=== PATIENT | female | born 1945 | race Caucasian/White ===

== ENCOUNTER 2021-01-25 11:48 | Inpatient (IN) | payer MEDICARE ==
[~2021-01-25] VITALS: Ht 165.1 cm; Wt 49.5 kg
[~2021-01-25 11:48] MED LIST: APIX5TAB3 PO; DIGO125T2 PO; DILT180C66 PO
[2021-01-25 20:15] LABS: BASOPHILS # (AUTO) 0.1 X10'3 (0-0.2); BASOPHILS % (AUTO) 0.3 % (0-1); EOSINOPHILS % (AUTO) 0 % (0-6); HEMATOCRIT 26.2 % (35.0-45.0); HEMOGLOBIN 8.5 g/dl (12.0-16.0); LYMPHOCYTES # (AUTO) 0.2 X10'3 (1.1-4.8); MEAN CORPUSCULAR HEMOGLOBIN 39.5 PG (27.0-31.0); MEAN CORPUSCULAR HGB CONC 32.6 g/dL (33.0-36.5); MEAN CORPUSCULAR VOLUME 121.2 FL (78-98); MEAN PLATELET VOLUME 8.4 FL (7.4-10.4); MONOCYTES # (AUTO) 0.7 X10'3 (0-0.9); NEUTROPHILS # (AUTO) 16.8 X10'3 (1.8-7.7); NEUTROPHILS % (AUTO) 94.7 % (42-75); PLATELET COUNT 330 X10'3 (140-440); RED BLOOD COUNT 2.16 X10'6 (4.20-5.60); WHITE BLOOD COUNT 17.8 X10'3 (4.5-11.0)
[2021-01-25 20:25] LABS: ALANINE AMINOTRANSFERASE 7 U/L (12-78); ALBUMIN 2.5 G/DL (3.4-5.0); ALBUMIN/GLOBULIN RATIO 0.7 (1.1-1.5); ALKALINE PHOSPHATASE 92 IU/L (46-116); ANION GAP 16 (8-16); ASPARTATE AMINO TRANSFERASE 20 U/L (10-37); BILIRUBIN,TOTAL 0.4 MG/DL (0.1-1.0); BLOOD UREA NITROGEN 66 MG/DL (7-18); BUN/CREATININE RATIO 10.9 (6.6-38.0); CALCIUM 7.1 MG/DL (8.5-10.1); CHLORIDE 105 MMOL/L (99-107); CREATININE 6.05 MG/DL (0.40-0.90); GLUCOSE 104 MG/DL (70-104); POTASSIUM 4.6 MMOL/L (3.5-5.1); SODIUM 138 MMOL/L (135-145); TOTAL CARBON DIOXIDE 17.5 MMOL/L (24-32); eGFR 7 ML/MIN
[2021-01-25] MEDS ORDERED: temazepam 15mg capsule PO PRN (21:00)
--- NOTE | 2021-01-25 22:06 | NUR ---
MOVED FROM HALLWAY 13 INTO BED 13.
--- NOTE | 2021-01-25 22:36 | NUR ---
DAUGHTER WARREN LEFT FOR THE NIGHT. PTS MED REC COMPLETED. PT IS A&OX4 AND POLITE AND COOPERATIVE. PIV IN PLACE. AWAITING HOSPITALIST.
[2021-01-26] MEDS ORDERED: normal saline 1000ml 1,000 ML IV SCH
[2021-01-26] MEDS ORDERED: HYDROcodone/acetaminophen 5mg/325mg tablet PO PRN
[2021-01-26] MEDS ORDERED: magnesium hydroxide 30ml (MOM) UD suspension PO PRN
[2021-01-26] MEDS ORDERED: potassium Cl 20 mEq SR tablet PO PRN ×2
[2021-01-26] MEDS ORDERED: mag hydrox/Alum hydrox/simeth 30ml oral suspension PO PRN
[2021-01-26] MEDS ORDERED: potassium Cl 40MEQ/1/2NS 520ml 520 ML IV PRN ×2
[2021-01-26] MEDS ORDERED: morphine 2 MG/ML inj. syringe IV PRN ×2
[2021-01-26] MEDS ORDERED: magnesium 2GM in 50ml NS 50 ML IV PRN
[2021-01-26] MEDS ORDERED: acetaminophen 325mg tablet PO PRN
[2021-01-26] MEDS ORDERED: magnesium Cl slow-release 64mg tablet PO PRN
[2021-01-26] MEDS ORDERED: HYDROcodone/acetaminophen 10/325mg tab PO PRN
[2021-01-26] MEDS ORDERED: magnesium 4gm in 100ml NS 100 ML IV PRN
[2021-01-26] MEDS ORDERED: ondansetron/PF 4mg/2ml inj IV PRN
[2021-01-26] MEDS: CefTRIAXone 2gm/D5W 50ml BAG 50 ML IV SCH (01:20)
[2021-01-26 01:31] LABS: CLARITY,URINE TURBID (Clear); COLOR,URINE BROWN (Yellow)
[2021-01-26 01:33] LABS: UA COLLECTION TYPE FOLEY CATH
[2021-01-26 01:39] LABS: RBC,URINE TNTC /HPF (0-2)
[2021-01-26 01:40] LABS: BACTERIA,URINE NONE SEEN /HPF (Neg); SQUAMOUS EPITHELIAL CELL,UR NONE SEEN /LPF (FEW)
[2021-01-26 03:37] LABS: BASOPHILS # (AUTO) 0.1 X10'3 (0-0.2); BASOPHILS % (AUTO) 1.1 % (0-1); EOSINOPHILS % (AUTO) 0 % (0-6); HEMATOCRIT 22.7 % (35.0-45.0); HEMOGLOBIN 7.1 g/dl (12.0-16.0); LYMPHOCYTES # (AUTO) 0.1 X10'3 (1.1-4.8); MEAN CORPUSCULAR HEMOGLOBIN 38.6 PG (27.0-31.0); MEAN CORPUSCULAR HGB CONC 31.1 g/dL (33.0-36.5); MEAN PLATELET VOLUME 7.9 FL (7.4-10.4); MONOCYTES # (AUTO) 0.5 X10'3 (0-0.9); MONOCYTES % (AUTO) 4.2 % (2-12); NEUTROPHILS % (AUTO) 93.7 % (42-75); PLATELET COUNT 249 X10'3 (140-440); RED BLOOD COUNT 1.83 X10'6 (4.20-5.60); RED CELL DISTRIBUTION WIDTH 15.5 % (11.5-14.5); WHITE BLOOD COUNT 12.8 X10'3 (4.5-11.0)
[2021-01-26 04:04] LABS: ALBUMIN 1.6 G/DL (3.4-5.0); ALBUMIN/GLOBULIN RATIO 0.6 (1.1-1.5); ALKALINE PHOSPHATASE 57 IU/L (46-116); ANION GAP 16 (8-16); ASPARTATE AMINO TRANSFERASE 13 U/L (10-37); BILIRUBIN,TOTAL 0.2 MG/DL (0.1-1.0); BLOOD UREA NITROGEN 52 MG/DL (7-18); CHLORIDE 115 MMOL/L (99-107); CREATININE 4.34 MG/DL (0.40-0.90); GLUCOSE 81 MG/DL (70-104); MAGNESIUM 1.3 MG/DL (1.5-2.4); POTASSIUM 3.4 MMOL/L (3.5-5.1); SODIUM 146 MMOL/L (135-145); TOTAL CARBON DIOXIDE 15.1 MMOL/L (24-32); TOTAL PROTEIN 4.1 G/DL (6.4-8.2); eGFR 10 ML/MIN
[2021-01-26 04:10] LABS: CALCIUM 5.1 MG/DL (8.5-10.1)
[2021-01-26 04:11] LABS: ALANINE AMINOTRANSFERASE < 6 U/L (12-78)
[2021-01-26] MEDS ORDERED: heparin, porcine 5000 units/ml vial SQ SCH (08:00)
[2021-01-26] MEDS ORDERED: digoxin 125mcg (0.125mg) tablet PO SCH (08:00)
[2021-01-26] MEDS: K and/or MAG REPLACEMENT MC SCH ×2 (08:00→19:25)
[2021-01-26] MEDS: diltiazem CD 180mg cap (once-daily) PO SCH (08:10)
[2021-01-26 08:30] VITALS: BP 97/40
--- NOTE | 2021-01-26 09:16 | NUR ---
PAGER ID: [phone] MESSAGE: Elicia received to 4023A from ED, reported NPO, reg diet ordered??? Dr Higuera to consult? Nephrology? Thank you, ZAKIYA [id number]
[2021-01-26] MEDS ORDERED: furosemide 40mg/4ml inj IV ONE (10:55)
[2021-01-26] MEDS: sodium bicarbonate (8.4%) inj. 100 MEQ in dextrose 5%-water 1,000 ML IV SCH ×2 (10:56→21:14)
[2021-01-26] MEDS: apixaban 5mg tablet PO SCH (12:14)
[2021-01-26] MEDS ORDERED: DILT-36 PO (14:40)
[2021-01-26 18:00] VITALS: BP 89/39
--- NOTE | 2021-01-26 18:40 | NUR ---
Patient in room ORTHO 4023. I have received report from Breana PANIAGUA and had the opportunity to ask questions and assume patient care.
--- NOTE | 2021-01-26 19:03 | NUR ---
Report to Barbie PANIAGUA
[2021-01-26] MEDS: lactobacillus rhamnosus 10,000 MMU CELLS/CAPSULE PO SCH (21:14)
[2021-01-26 22:00] VITALS: BP 98/40
--- NOTE | 2021-01-27 00:33 | NUR ---
PAGER ID: [phone] MESSAGE: Barbie [phone]- Pt in [id number] [facility], she has positive blood cultures in her aerobic bottle; gram positive cocci in clusters. She in only on Rocephin. Addendum: 01/27/21 at 0035 by Barbie Weir RN called back, ordered 1gm Vanco now then pharmacy to dose. Will place orders.
[2021-01-27] MEDS ORDERED: vancomycin/NS 1 GM ADD-VANTAGE 250 ML IV ONE (00:43)
[2021-01-27] MEDS: CefTRIAXone 2gm/D5W 50ml BAG 50 ML IV SCH (00:50)
[2021-01-27 05:55] LABS: BASOPHILS % (AUTO) 0.1 % (0-1); EOSINOPHILS % (AUTO) 0.1 % (0-6); HEMATOCRIT 26.8 % (35.0-45.0); HEMOGLOBIN 8.6 g/dl (12.0-16.0); LYMPHOCYTES # (AUTO) 0.2 X10'3 (1.1-4.8); LYMPHOCYTES % (AUTO) 0.8 % (21-51); MEAN CORPUSCULAR HEMOGLOBIN 38.9 PG (27.0-31.0); MEAN CORPUSCULAR HGB CONC 32.2 g/dL (33.0-36.5); MEAN CORPUSCULAR VOLUME 120.6 FL (78-98); MEAN PLATELET VOLUME 8.3 FL (7.4-10.4); MONOCYTES # (AUTO) 0.7 X10'3 (0-0.9); MONOCYTES % (AUTO) 3.3 % (2-12); NEUTROPHILS # (AUTO) 19.9 X10'3 (1.8-7.7); NEUTROPHILS % (AUTO) 95.7 % (42-75); PLATELET COUNT 316 X10'3 (140-440); RED BLOOD COUNT 2.22 X10'6 (4.20-5.60); RED CELL DISTRIBUTION WIDTH 15.1 % (11.5-14.5); WHITE BLOOD COUNT 20.7 X10'3 (4.5-11.0)
[2021-01-27 06:00] VITALS: BP 89/39
[2021-01-27 06:10] LABS: ALBUMIN 2.1 G/DL (3.4-5.0); ALBUMIN/GLOBULIN RATIO 0.7 (1.1-1.5); ALKALINE PHOSPHATASE 92 IU/L (46-116); ANION GAP 14 (8-16); ASPARTATE AMINO TRANSFERASE 16 U/L (10-37); BILIRUBIN,TOTAL 0.3 MG/DL (0.1-1.0); BLOOD UREA NITROGEN 63 MG/DL (7-18); BUN/CREATININE RATIO 12.1 (6.6-38.0); CALCIUM 6.5 MG/DL (8.5-10.1); CHLORIDE 104 MMOL/L (99-107); CREATININE 5.19 MG/DL (0.40-0.90); GLUCOSE 152 MG/DL (70-104); MAGNESIUM 1.5 MG/DL (1.5-2.4); POTASSIUM 3.8 MMOL/L (3.5-5.1); SODIUM 139 MMOL/L (135-145); TOTAL CARBON DIOXIDE 20.9 MMOL/L (24-32); TOTAL PROTEIN 5.3 G/DL (6.4-8.2); eGFR 8 ML/MIN
--- NOTE | 2021-01-27 06:17 | NUR ---
Problems reprioritized. Patient report given, questions answered & plan of care reviewed with Josselin PANIAGUA.
[2021-01-27 06:31] LABS: ALANINE AMINOTRANSFERASE < 6 U/L (12-78)
[2021-01-27] MEDS ORDERED: vancomycin/NS 1 GM ADD-VANTAGE 250 ML X 1 DOSE IV PRN (07:05)
[2021-01-27] MEDS: lactobacillus rhamnosus 10,000 MMU CELLS/CAPSULE PO SCH ×2 (07:25→21:00)
[2021-01-27] MEDS: diltiazem CD 180mg cap (once-daily) PO SCH (07:26)
[2021-01-27] MEDS: K and/or MAG REPLACEMENT MC SCH ×2 (07:27→20:00)
[2021-01-27] MEDS: sodium bicarbonate (8.4%) inj. 100 MEQ in dextrose 5%-water 1,000 ML IV SCH ×2 (07:39→21:10)
[2021-01-27 08:00] VITALS: BP 104/45
[2021-01-27 10:00] VITALS: BP 92/46
--- NOTE | 2021-01-27 11:06 | NUR ---
PAGER ID: [phone] MESSAGE: ronal pelayo [phone] re: Bonny Rubi [id number]. Manager Neonatal recommending appetite stimulator. Thank you
--- NOTE | 2021-01-27 12:14 | NUR ---
Low BMI screen: Pt admit DX MARIA A r/t hydronephrosis w/ obstructive uropathy from metastatic CA, anemia, lymphadenopathy, leukocytosis, and hx breast CA on chemo w/ metastasis to bone and current retroperitoneal mass per EMR. Pending nephrostomy tube tomorrow per MD note. Pt BMI 18.2 pending scaled wt this admit though pt seen by RD recent prior admit 01/17 and met severe malnutrition criteria at that time. Pt/daughter seen by RD this admit reports maintains low appetite at baseline and currently no desire to take in most liquids/PO given lower abdomen fluid collection pending nephrostomy tube. Pt visibly has severe muscle/fat wasting evident to temporal, biceps/triceps, clavicular, deltoids, and sternal areas during RD visit. Given above pt meets severe malnutrition criteria; MD notified. Pt does report liking strawberry shakes which were sent prior admit for kcals though declines at this time given current fluid collection impacting desire for PO in addition to already low baseline appetite. RD d/w pt regarding MVI supplementation given MCV 120.6 on admit and metastatic CA hx w/ chemo last dosage ~6 weeks ago per EMR. Pt reports MVI make her nauseous including MVI-dense ONS such as Ensures and declines MVI supplementation at this time. Advanced to regular diet this admit PO 25-50% first meal last night pending further PO documentation. RD encouraged pt/daughter to notify dietary or dietitian of any foods preferences given no current dietary restriction for nutrition repletion. RD d/w RN regarding appetite stimulant if MD agreeable given pt reported persistent low appetite; reports likes all foods just no appetite present. LBM 01/26. Will continue to monitor for nutrition repletion needs this admit. Rec: 1. continue regular diet; encourage PO; honor food preferences 2. following nephrostomy tube consider strawberry shakes TIDWM since pt reports liking but currently declines r/t fluid collection 3. appetite stimulant if MD agreeable; low baseline appetite 4. bowel care per rx 5. scaled wt this admit; subsequent weekly wts 6. Consider supplemental alternative nutrition IF pt PO remains poor given current severe malnutrition status, prolonged poor appetite, and nutrition repletion needs IF within plan of care Addendum: 01/27/21 at [address] Amended: Links added.
--- NOTE | 2021-01-27 17:13 | NUR ---
Pt is very pleasant. Pt has had a couple loose bowel movements this shift. Pt states this has been going on for a little while. Pt had 175ml urine out this shift. Mary/bright care performed. Pt has refused multiple times this shift to be repositioned despite nursing staff repeated attempts. Pt has has extremely poor nutrition, <10% of all meals. MD notified regarding nutrition stimulant. Pt remains in good spirits and is looking forward to Nephrostomy procedure tomorrow. Will continue to monitor patient
[2021-01-27 18:30] VITALS: BP 100/47
--- NOTE | 2021-01-27 18:36 | NUR ---
Problems reprioritized. Patient report given, questions answered & plan of care reviewed with Neela PANIAGUA.
[2021-01-27] MEDS: acetaminophen 325mg tablet PO PRN (21:01)
[2021-01-27 22:00] VITALS: BP 98/40
[2021-01-28] VITALS (8 sets, daily range): BP systolic 91–104; BP diastolic 38–57
[2021-01-28] MEDS: CefTRIAXone 2gm/D5W 50ml BAG 50 ML IV SCH (00:16)
--- NOTE | 2021-01-28 00:36 | NUR ---
pt refused any dinner. daughter unable to convince her to try anything. will continue to bring in food items to assist with appetite.
[2021-01-28] MEDS: VANCOMYCIN LEVEL IV SCH (03:00)
--- NOTE | 2021-01-28 06:25 | NUR ---
reported to days. noted pt anxious to get nephrostomy completed. dr. Pollard to do procedure.
[2021-01-28 06:54] LABS: BASOPHILS % (AUTO) 0.2 % (0-1); EOSINOPHILS # (AUTO) 0.1 X10'3 (0-0.9); EOSINOPHILS % (AUTO) 0.6 % (0-6); HEMATOCRIT 25.2 % (35.0-45.0); HEMOGLOBIN 8.2 g/dl (12.0-16.0); LYMPHOCYTES # (AUTO) 0.2 X10'3 (1.1-4.8); LYMPHOCYTES % (AUTO) 1.3 % (21-51); MEAN CORPUSCULAR HEMOGLOBIN 38.4 PG (27.0-31.0); MEAN CORPUSCULAR HGB CONC 32.4 g/dL (33.0-36.5); MEAN CORPUSCULAR VOLUME 118.6 FL (78-98); MEAN PLATELET VOLUME 8.5 FL (7.4-10.4); MONOCYTES # (AUTO) 0.8 X10'3 (0-0.9); MONOCYTES % (AUTO) 4.9 % (2-12); PLATELET COUNT 282 X10'3 (140-440); RED BLOOD COUNT 2.12 X10'6 (4.20-5.60); RED CELL DISTRIBUTION WIDTH 15.1 % (11.5-14.5); WHITE BLOOD COUNT 17.2 X10'3 (4.5-11.0)
[2021-01-28 07:20] LABS: ALBUMIN 1.9 G/DL (3.4-5.0); ALBUMIN/GLOBULIN RATIO 0.6 (1.1-1.5); ALKALINE PHOSPHATASE 101 IU/L (46-116); ANION GAP 12 (8-16); ASPARTATE AMINO TRANSFERASE 21 U/L (10-37); BILIRUBIN,TOTAL 0.2 MG/DL (0.1-1.0); BLOOD UREA NITROGEN 68 MG/DL (7-18); BUN/CREATININE RATIO 12.5 (6.6-38.0); CALCIUM 6.1 MG/DL (8.5-10.1); CHLORIDE 103 MMOL/L (99-107); CREATININE 5.46 MG/DL (0.40-0.90); GLUCOSE 94 MG/DL (70-104); MAGNESIUM 1.6 MG/DL (1.5-2.4); POTASSIUM 3.7 MMOL/L (3.5-5.1); SODIUM 139 MMOL/L (135-145); TOTAL CARBON DIOXIDE 24.1 MMOL/L (24-32); TOTAL PROTEIN 5.1 G/DL (6.4-8.2); VANCOMYCIN,RANDOM 11.2 UG/ML; eGFR 8 ML/MIN
[2021-01-28 07:23] LABS: ALANINE AMINOTRANSFERASE < 6 U/L (12-78)
[2021-01-28] MEDS: digoxin 125mcg (0.125mg) tablet PO SCH (07:41)
[2021-01-28] MEDS: lactobacillus rhamnosus 10,000 MMU CELLS/CAPSULE PO SCH ×2 (07:41→20:40)
[2021-01-28 07:43] LABS: ANISOCYTOSIS 1+; PLATELET ESTIMATE NORMAL; SCHISTOCYTES FEW; TEAR DROP CELLS FEW
[2021-01-28] MEDS: diltiazem CD 180mg cap (once-daily) PO SCH (07:46)
[2021-01-28] MEDS ORDERED: vancomycin/NS 1 GM ADD-VANTAGE 250 ML X 1 DOSE IV ONE (08:00)
[2021-01-28] MEDS: K and/or MAG REPLACEMENT MC SCH ×2 (08:00→20:00)
[2021-01-28] MEDS ORDERED: iohexol 300 MG/1 ML 50ml polymer ONE (08:21)
[2021-01-28] MEDS ORDERED: LIDOcaine 1%/PF 5ML 10 MG/ML VIAL ONE (08:21)
[2021-01-28] MEDS ORDERED: midazolam 1 mg/ML 2ml injection ONE (08:21)
[2021-01-28] MEDS ORDERED: fentaNYL/PF 50MCG/1 ML 2ML syringe ONE (08:21)
--- NOTE | 2021-01-28 08:30 | NUR ---
Pt transferred to IR via bed.
[2021-01-28 09:58] LABS: CLARITY,URINE SLIGHTLY CLOUDY (Clear); COLOR,URINE YELLOW (Yellow); GLUCOSE, URINE NEGATIVE (Neg); KETONES,URINE NEGATIVE (Neg); LEUKOCYTE ESTERASE ,URINE SMALL (Neg); NITRITES, URINE NEGATIVE (Neg); OCCULT BLOOD,URINE LARGE (Neg); PROTEIN,URINE 30 mg/dl (Neg); UROBILINOGEN,URINE 0.2 E.U/dL (0.2-1.0)
[2021-01-28 10:00] LABS: UA COLLECTION TYPE OTHER
--- NOTE | 2021-01-28 10:00 | NUR ---
Pt transferred from IR to 402 via bed. Pt awake and alert. VSS. Pt denied any pain at this time. R nephrostomy tube site CDI and minimal serosang. drainage in neprostomy bag.
[2021-01-28 10:06] LABS: BACTERIA,URINE NONE SEEN /HPF (Neg); RBC,URINE 20-50 /HPF (0-2)
[2021-01-28 10:07] LABS: MUCUS STRANDS NONE SEEN /LPF (Neg); SQUAMOUS EPITHELIAL CELL,UR NONE SEEN /LPF (FEW)
[2021-01-28] MEDS: sodium bicarbonate (8.4%) inj. 100 MEQ in dextrose 5%-water 1,000 ML IV SCH ×2 (14:38→20:30)
[2021-01-28] MEDS: EPOETIN ALFA-EPBX 20,000 UNIT/ML 1 ML MDV SQ SCH (14:39)
--- NOTE | 2021-01-28 18:51 | NUR ---
Patient in room ORTH[facility] 4023. I have received report from ARCELIA Perez and had the opportunity to ask questions and assume patient care.
[2021-01-28] MEDS: acetaminophen 325mg tablet PO PRN (23:21)
[2021-01-29] MEDS: CefTRIAXone 2gm/D5W 50ml BAG 50 ML IV SCH (00:15)
[2021-01-29] MEDS: VANCOMYCIN LEVEL IV SCH (03:00)
[2021-01-29] MEDS: sodium bicarbonate (8.4%) inj. 100 MEQ in dextrose 5%-water 1,000 ML IV SCH ×2 (04:24→16:01)
[2021-01-29 06:00] VITALS: BP 98/45
[2021-01-29 06:05] LABS: BASOPHILS % (AUTO) 0.1 % (0-1); EOSINOPHILS # (AUTO) 0.1 X10'3 (0-0.9); EOSINOPHILS % (AUTO) 0.5 % (0-6); HEMATOCRIT 24.2 % (35.0-45.0); HEMOGLOBIN 7.8 g/dl (12.0-16.0); LYMPHOCYTES # (AUTO) 0.2 X10'3 (1.1-4.8); LYMPHOCYTES % (AUTO) 1.1 % (21-51); MEAN CORPUSCULAR HEMOGLOBIN 38.5 PG (27.0-31.0); MEAN CORPUSCULAR HGB CONC 32.3 g/dL (33.0-36.5); MEAN CORPUSCULAR VOLUME 119.1 FL (78-98); MEAN PLATELET VOLUME 8.9 FL (7.4-10.4); MONOCYTES # (AUTO) 0.7 X10'3 (0-0.9); MONOCYTES % (AUTO) 4.4 % (2-12); NEUTROPHILS # (AUTO) 14.7 X10'3 (1.8-7.7); NEUTROPHILS % (AUTO) 93.9 % (42-75); PLATELET COUNT 252 X10'3 (140-440); RED BLOOD COUNT 2.03 X10'6 (4.20-5.60); RED CELL DISTRIBUTION WIDTH 14.6 % (11.5-14.5); WHITE BLOOD COUNT 15.6 X10'3 (4.5-11.0)
[2021-01-29 06:26] LABS: ALANINE AMINOTRANSFERASE 6 U/L (12-78); ALBUMIN 1.7 G/DL (3.4-5.0); ALBUMIN/GLOBULIN RATIO 0.5 (1.1-1.5); ALKALINE PHOSPHATASE 104 IU/L (46-116); ANION GAP 10 (8-16); ASPARTATE AMINO TRANSFERASE 24 U/L (10-37); BILIRUBIN,TOTAL 0.2 MG/DL (0.1-1.0); BLOOD UREA NITROGEN 65 MG/DL (7-18); BUN/CREATININE RATIO 13.3 (6.6-38.0); CHLORIDE 102 MMOL/L (99-107); CREATININE 4.89 MG/DL (0.40-0.90); GLUCOSE 108 MG/DL (70-104); MAGNESIUM 1.4 MG/DL (1.5-2.4); POTASSIUM 3.3 MMOL/L (3.5-5.1); SODIUM 138 MMOL/L (135-145); TOTAL CARBON DIOXIDE 25.6 MMOL/L (24-32); TOTAL PROTEIN 4.8 G/DL (6.4-8.2); eGFR 9 ML/MIN
--- NOTE | 2021-01-29 06:26 | NUR ---
Problems reprioritized. Patient report given, questions answered & plan of care reviewed with ARCELIA Perez.
[2021-01-29 06:59] LABS: PLATELET ESTIMATE NORMAL; POIKILOCYTOSIS FEW; POLYCHROMASIA FEW
[2021-01-29] MEDS: K and/or MAG REPLACEMENT MC SCH ×2 (08:00→20:00)
[2021-01-29] MEDS: diltiazem CD 180mg cap (once-daily) PO SCH (08:00)
[2021-01-29] MEDS: lactobacillus rhamnosus 10,000 MMU CELLS/CAPSULE PO SCH ×2 (08:51→20:50)
[2021-01-29] MEDS: apixaban 5mg tablet PO SCH ×2 (08:51→20:50)
[2021-01-29 10:00] VITALS: BP 91/47
[2021-01-29] MEDS ORDERED: CALCIUM GLUC 1gm/50ml NACL,iso 100 ML IV ONE (11:00)
[2021-01-29] MEDS: loperamide 2mg capsule PO PRN (16:51)
[2021-01-29 18:00] VITALS: BP 98/48
[2021-01-29 22:00] VITALS: BP 97/53
[2021-01-30] MEDS: CefTRIAXone 2gm/D5W 50ml BAG 50 ML IV SCH ×2 (01:39→23:32)
[2021-01-30] MEDS: VANCOMYCIN LEVEL IV SCH (03:00)
[2021-01-30] MEDS: sodium bicarbonate (8.4%) inj. 100 MEQ in dextrose 5%-water 1,000 ML IV SCH (04:28)
[2021-01-30 06:06] LABS: BASOPHILS % (AUTO) 0.3 % (0-1); EOSINOPHILS # (AUTO) 0.1 X10'3 (0-0.9); EOSINOPHILS % (AUTO) 0.8 % (0-6); HEMATOCRIT 24.5 % (35.0-45.0); HEMOGLOBIN 8.1 g/dl (12.0-16.0); LYMPHOCYTES # (AUTO) 0.2 X10'3 (1.1-4.8); LYMPHOCYTES % (AUTO) 1.5 % (21-51); MEAN CORPUSCULAR HEMOGLOBIN 39.2 PG (27.0-31.0); MEAN CORPUSCULAR VOLUME 118.7 FL (78-98); MEAN PLATELET VOLUME 8.8 FL (7.4-10.4); MONOCYTES # (AUTO) 0.8 X10'3 (0-0.9); MONOCYTES % (AUTO) 5.3 % (2-12); NEUTROPHILS # (AUTO) 14.2 X10'3 (1.8-7.7); NEUTROPHILS % (AUTO) 92.1 % (42-75); PLATELET COUNT 250 X10'3 (140-440); RED BLOOD COUNT 2.06 X10'6 (4.20-5.60); RED CELL DISTRIBUTION WIDTH 14.6 % (11.5-14.5); WHITE BLOOD COUNT 15.4 X10'3 (4.5-11.0)
[2021-01-30 06:10] VITALS: BP 94/43
[2021-01-30 06:24] LABS: ALBUMIN 1.6 G/DL (3.4-5.0); ALBUMIN/GLOBULIN RATIO 0.5 (1.1-1.5); ALKALINE PHOSPHATASE 99 IU/L (46-116); ANION GAP 7 (8-16); ASPARTATE AMINO TRANSFERASE 20 U/L (10-37); BILIRUBIN,TOTAL 0.2 MG/DL (0.1-1.0); BLOOD UREA NITROGEN 54 MG/DL (7-18); BUN/CREATININE RATIO 13.9 (6.6-38.0); CHLORIDE 100 MMOL/L (99-107); CREATININE 3.89 MG/DL (0.40-0.90); GLUCOSE 109 MG/DL (70-104); MAGNESIUM 1.2 MG/DL (1.5-2.4); SODIUM 138 MMOL/L (135-145); TOTAL CARBON DIOXIDE 31.3 MMOL/L (24-32); TOTAL PROTEIN 4.7 G/DL (6.4-8.2); VANCOMYCIN,RANDOM 17.1 UG/ML; eGFR 11 ML/MIN
[2021-01-30 06:42] LABS: ALANINE AMINOTRANSFERASE < 6 U/L (12-78)
[2021-01-30 06:43] LABS: POTASSIUM 2.8 MMOL/L (3.5-5.1)
[2021-01-30 06:44] LABS: CALCIUM 5.9 MG/DL (8.5-10.1)
--- NOTE | 2021-01-30 06:48 | NUR ---
Patient in room ORTHO 4023. I have received report from Janine PANIAGUA and had the opportunity to ask questions and assume patient care.
[2021-01-30 07:11] LABS: PLATELET ESTIMATE NORMAL
[2021-01-30 07:12] LABS: ELLIPTOCYTES FEW; STOMATOCYTES FEW; TEAR DROP CELLS FEW
[2021-01-30] MEDS: diltiazem CD 180mg cap (once-daily) PO SCH (08:00)
[2021-01-30] MEDS: digoxin 125mcg (0.125mg) tablet PO SCH (08:00)
[2021-01-30] MEDS ORDERED: calcitriol 0.25mcg capsule PO SCH (08:00)
[2021-01-30] MEDS: apixaban 5mg tablet PO SCH ×2 (08:00→21:49)
[2021-01-30] MEDS ORDERED: magnesium 4gm in 100ml NS 100 ML IV PRN (08:00)
[2021-01-30] MEDS: K and/or MAG REPLACEMENT MC SCH ×2 (08:00→20:00)
[2021-01-30] MEDS ORDERED: potassium Cl 40MEQ/1/2NS 520ml 520 ML IV PRN (08:00)
[2021-01-30] MEDS: lactobacillus rhamnosus 10,000 MMU CELLS/CAPSULE PO SCH ×2 (08:00→21:49)
[2021-01-30] MEDS ORDERED: magnesium Cl slow-release 64mg tablet PO PRN (08:00)
[2021-01-30] MEDS ORDERED: magnesium 2GM in 50ml NS 50 ML IV PRN (08:00)
[2021-01-30] MEDS ORDERED: potassium Cl 20 mEq SR tablet PO PRN ×2 (08:00)
[2021-01-30] MEDS ORDERED: calcium carbonate 500mg tablet PO SCH (09:00)
[2021-01-30 09:38] LABS: MAGNESIUM 1.3 MG/DL (1.5-2.4)
[2021-01-30 09:39] LABS: POTASSIUM 2.7 MMOL/L (3.5-5.1)
[2021-01-30 10:00] VITALS: BP 101/5
--- NOTE | 2021-01-30 10:00 | NUR ---
Called Dr. Calixto' office this morning to ask about why bright isn't draining. Dr. Saldaña called back and said that it wasn't always uncommon for the bright not produce out-put after nephrostomy placement. He said to flush the bright anyway, which I did, nothing seemed to be clogged.
[2021-01-30] MEDS: normal saline 1000ml 1,000 ML IV SCH ×2 (10:27→20:00)
[2021-01-30] MEDS: calcium carbonate 500mg chew tablet PO SCH ×3 (10:36→21:49)
[2021-01-30] MEDS ORDERED: CALCIUM GLUC 1gm/50ml NACL,iso 100 ML IV ONE (10:50)
--- NOTE | 2021-01-30 13:09 | NUR ---
RECEIVED REPORT FROM EARNEST PANIAGUA AND ASSUMED PATIENT CARE
--- NOTE | 2021-01-30 13:44 | NUR ---
Reassessment: Pt continues w/ poor PO intake, only documented to have consumed about 50% of one meal since 01/27. Discussed w/ RN the use of appetite stimulants if MD agreeable. Given pt's malnutrition status, poor appetite hx, and repletion needs, communicated to RN that nutrition support may be indicated at this time. Pt had nephrostomy tube placed 01/28 for drainage of R kidney per EMR. Given pt's preferences from previous admit, will recommend [place] Jerardo Shake TID. Pt may be at risk for refeeding syndrome at this time given labs K 2.7 Mg 1.3 though they are being repleted. LBM 01/28. Will continue to monitor PO trends. Rec: 1. continue regular diet; encourage PO; honor food preferences 2. strawberry shakes TIDWM 3. appetite stimulant if MD agreeable; low baseline appetite 4. bowel care per rx 5. scaled wt this admit; subsequent weekly wts 6. Consider supplemental alternative nutrition IF pt PO remains poor given current severe malnutrition status, prolonged poor appetite, and nutrition repletion needs IF within plan of care Addendum: 01/30/21 at [address] Amended: Links added.
--- NOTE | 2021-01-30 16:55 | NUR ---
Patient in room ORTH[facility] 4023. I have received report from Kathleen PANIAGUA and had the opportunity to ask questions and assume patient care.
[2021-01-31] MEDS: VANCOMYCIN LEVEL IV SCH (03:00)
[2021-01-31] MEDS: loperamide 2mg capsule PO PRN (04:51)
[2021-01-31 06:00] VITALS: BP 107/53
[2021-01-31 06:29] LABS: MAGNESIUM 2.9 MG/DL (1.5-2.4); VANCOMYCIN,RANDOM 13.9 UG/ML
--- NOTE | 2021-01-31 06:51 | NUR ---
Patient in room ORTHO 4023A. I have received report from ARCELIA MCCANN and had the opportunity to ask questions and assume patient care.
[2021-01-31] MEDS: K and/or MAG REPLACEMENT MC SCH ×2 (08:00→20:00)
[2021-01-31] MEDS ORDERED: vancomycin/NS 1 GM ADD-VANTAGE 250 ML X 1 DOSE IV ONE (08:45)
--- NOTE | 2021-01-31 08:55 | NUR ---
PT LEFT FLOOR FOR NUC STUDY
[2021-01-31 09:39] LABS: BASOPHILS % (AUTO) 0.3 % (0-1); EOSINOPHILS # (AUTO) 0.1 X10'3 (0-0.9); EOSINOPHILS % (AUTO) 0.4 % (0-6); HEMATOCRIT 26.8 % (35.0-45.0); HEMOGLOBIN 8.7 g/dl (12.0-16.0); LYMPHOCYTES # (AUTO) 0.1 X10'3 (1.1-4.8); LYMPHOCYTES % (AUTO) 0.9 % (21-51); MEAN CORPUSCULAR HEMOGLOBIN 38.8 PG (27.0-31.0); MEAN CORPUSCULAR HGB CONC 32.5 g/dL (33.0-36.5); MEAN CORPUSCULAR VOLUME 119.3 FL (78-98); MEAN PLATELET VOLUME 8.9 FL (7.4-10.4); MONOCYTES # (AUTO) 0.5 X10'3 (0-0.9); NEUTROPHILS # (AUTO) 15.2 X10'3 (1.8-7.7); NEUTROPHILS % (AUTO) 95.4 % (42-75); PLATELET COUNT 282 X10'3 (140-440); RED BLOOD COUNT 2.25 X10'6 (4.20-5.60); RED CELL DISTRIBUTION WIDTH 14.5 % (11.5-14.5)
[2021-01-31 10:00] VITALS: BP 95/52
[2021-01-31 10:03] LABS: ALANINE AMINOTRANSFERASE 9 U/L (12-78); ALBUMIN 1.7 G/DL (3.4-5.0); ALBUMIN/GLOBULIN RATIO 0.5 (1.1-1.5); ALKALINE PHOSPHATASE 134 IU/L (46-116); ASPARTATE AMINO TRANSFERASE 21 U/L (10-37); BILIRUBIN,TOTAL 0.2 MG/DL (0.1-1.0); BLOOD UREA NITROGEN 45 MG/DL (7-18); BUN/CREATININE RATIO 15.5 (6.6-38.0); CALCIUM 6.3 MG/DL (8.5-10.1); CHLORIDE 99 MMOL/L (99-107); CREATININE 2.91 MG/DL (0.40-0.90); GLUCOSE 109 MG/DL (70-104); MAGNESIUM 2.7 MG/DL (1.5-2.4); PHOSPHORUS 3.4 MG/DL (2.3-4.5); POTASSIUM 3.2 MMOL/L (3.5-5.1); TOTAL CARBON DIOXIDE 29.6 MMOL/L (24-32); eGFR 16 ML/MIN
[2021-01-31 10:04] LABS: ANION GAP 11 (8-16); SODIUM 140 MMOL/L (135-145)
[2021-01-31] MEDS: lactobacillus rhamnosus 10,000 MMU CELLS/CAPSULE PO SCH ×2 (11:03→21:06)
[2021-01-31] MEDS: calcium carbonate 500mg chew tablet PO SCH ×3 (11:03→17:49)
[2021-01-31] MEDS: diltiazem CD 180mg cap (once-daily) PO SCH (11:03)
[2021-01-31] MEDS: apixaban 5mg tablet PO SCH (11:03)
[2021-01-31] MEDS: normal saline 1000ml 1,000 ML IV SCH ×3 (13:07→22:32)
[2021-01-31] MEDS: EPOETIN ALFA-EPBX 20,000 UNIT/ML 1 ML MDV SQ SCH (13:14)
[2021-01-31] MEDS: potassium chloride 10mEq ER tablet PO SCH ×2 (17:48→21:06)
[2021-01-31 18:00] VITALS: BP 92/51
[2021-01-31 22:00] VITALS: BP 96/51
[2021-02-01] MEDS: potassium chloride 10mEq ER tablet PO SCH (00:56)
[2021-02-01] MEDS: CefTRIAXone 2gm/D5W 50ml BAG 50 ML IV SCH (00:57)
[2021-02-01] MEDS: VANCOMYCIN LEVEL IV SCH (02:25)
[2021-02-01 06:00] VITALS: BP 97/45
--- NOTE | 2021-02-01 06:14 | NUR ---
Problems reprioritized. Patient report given, questions answered & plan of care reviewed with pierce Schwab.
--- NOTE | 2021-02-01 06:42 | NUR ---
Patient in room ORTHO 4023. I have received report from Stan Cavazos and had the opportunity to ask questions and assume patient care.
[2021-02-01] MEDS: lactobacillus rhamnosus 10,000 MMU CELLS/CAPSULE PO SCH ×2 (07:01→19:15)
[2021-02-01] MEDS: diltiazem CD 180mg cap (once-daily) PO SCH (07:03)
[2021-02-01] MEDS: loperamide 2mg capsule PO PRN (07:03)
[2021-02-01] MEDS: digoxin 125mcg (0.125mg) tablet PO SCH (07:04)
[2021-02-01] MEDS: K and/or MAG REPLACEMENT MC SCH ×2 (08:00→20:00)
[2021-02-01] MEDS: calcium carbonate 500mg chew tablet PO SCH ×3 (08:38→18:08)
[2021-02-01 08:47] LABS: BASOPHILS % (AUTO) 0.4 % (0-1); EOSINOPHILS # (AUTO) 0.1 X10'3 (0-0.9); EOSINOPHILS % (AUTO) 1.1 % (0-6); HEMATOCRIT 26.9 % (35.0-45.0); HEMOGLOBIN 8.6 g/dl (12.0-16.0); LYMPHOCYTES # (AUTO) 0.1 X10'3 (1.1-4.8); LYMPHOCYTES % (AUTO) 1.1 % (21-51); MEAN CORPUSCULAR HEMOGLOBIN 38.5 PG (27.0-31.0); MEAN CORPUSCULAR HGB CONC 32.1 g/dL (33.0-36.5); MEAN CORPUSCULAR VOLUME 120.1 FL (78-98); MEAN PLATELET VOLUME 8.7 FL (7.4-10.4); MONOCYTES # (AUTO) 0.6 X10'3 (0-0.9); MONOCYTES % (AUTO) 4.7 % (2-12); NEUTROPHILS # (AUTO) 11.5 X10'3 (1.8-7.7); NEUTROPHILS % (AUTO) 92.7 % (42-75); PLATELET COUNT 263 X10'3 (140-440); RED BLOOD COUNT 2.24 X10'6 (4.20-5.60); RED CELL DISTRIBUTION WIDTH 14.8 % (11.5-14.5); WHITE BLOOD COUNT 12.4 X10'3 (4.5-11.0)
[2021-02-01 09:02] LABS: ALBUMIN 1.8 G/DL (3.4-5.0); ANION GAP 7 (8-16); BLOOD UREA NITROGEN 37 MG/DL (7-18); BUN/CREATININE RATIO 15.7 (6.6-38.0); CALCIUM 6.3 MG/DL (8.5-10.1); CHLORIDE 103 MMOL/L (99-107); CREATININE 2.35 MG/DL (0.40-0.90); GLUCOSE 123 MG/DL (70-104); MAGNESIUM 2.2 MG/DL (1.5-2.4); PHOSPHORUS 2.9 MG/DL (2.3-4.5); POTASSIUM 3.5 MMOL/L (3.5-5.1); SODIUM 140 MMOL/L (135-145); TOTAL CARBON DIOXIDE 29.6 MMOL/L (24-32); VANCOMYCIN,RANDOM 19.6 UG/ML; eGFR 20 ML/MIN
[2021-02-01] MEDS: normal saline 1000ml 1,000 ML IV SCH ×2 (09:52→19:15)
[2021-02-01 10:00] VITALS: BP 101/57
[2021-02-01] MEDS ORDERED: CALCIUM GLUC 1gm/50ml NACL,iso 50 ML IV ONE (14:45)
--- NOTE | 2021-02-01 16:37 | NUR ---
Patient remains in good spirits. Pts nutrition continues to be poor. Pt has refused repositioning multiple time this shift despite nursing multiple attempts. Pt states "my family is helping me turn". Pt and family is aware of possible surgery tomorrow. PICC nurse placed an extended piv today in L upper extremity today. Will continue to encourage repositioning, and better nutrition.
[2021-02-01 18:30] VITALS: BP 125/57
--- NOTE | 2021-02-01 18:36 | NUR ---
Problems reprioritized. Patient report given, questions answered & plan of care reviewed with tre pelayo.
--- NOTE | 2021-02-01 18:40 | NUR ---
Assumed care report from Josselin PANIAGUA.
--- NOTE | 2021-02-01 19:50 | NUR ---
Pt most comfortable on her back does not like to be turned on her side. will elevate her legs at times.
[2021-02-01 22:00] VITALS: BP 118/57
[2021-02-02] VITALS (8 sets, daily range): BP systolic 95–139; BP diastolic 51–67
[2021-02-02] MEDS: CefTRIAXone 2gm/D5W 50ml BAG 50 ML IV SCH (00:49)
[2021-02-02] MEDS: VANCOMYCIN LEVEL IV SCH (03:00)
[2021-02-02 06:16] LABS: BASOPHILS % (AUTO) 0.4 % (0-1); EOSINOPHILS # (AUTO) 0.2 X10'3 (0-0.9); EOSINOPHILS % (AUTO) 2.1 % (0-6); HEMATOCRIT 25.6 % (35.0-45.0); HEMOGLOBIN 8.3 g/dl (12.0-16.0); LYMPHOCYTES # (AUTO) 0.2 X10'3 (1.1-4.8); MEAN CORPUSCULAR HEMOGLOBIN 38.3 PG (27.0-31.0); MEAN CORPUSCULAR HGB CONC 32.4 g/dL (33.0-36.5); MEAN CORPUSCULAR VOLUME 118.1 FL (78-98); MEAN PLATELET VOLUME 8.3 FL (7.4-10.4); MONOCYTES # (AUTO) 0.7 X10'3 (0-0.9); MONOCYTES % (AUTO) 8.2 % (2-12); NEUTROPHILS # (AUTO) 7.1 X10'3 (1.8-7.7); NEUTROPHILS % (AUTO) 87.3 % (42-75); PLATELET COUNT 247 X10'3 (140-440); RED BLOOD COUNT 2.17 X10'6 (4.20-5.60); RED CELL DISTRIBUTION WIDTH 14.5 % (11.5-14.5); WHITE BLOOD COUNT 8.2 X10'3 (4.5-11.0)
[2021-02-02 06:33] LABS: ALBUMIN 1.7 G/DL (3.4-5.0); ANION GAP 10 (8-16); BLOOD UREA NITROGEN 31 MG/DL (7-18); BUN/CREATININE RATIO 14.9 (6.6-38.0); CALCIUM 6.3 MG/DL (8.5-10.1); CHLORIDE 103 MMOL/L (99-107); CREATININE 2.08 MG/DL (0.40-0.90); GLUCOSE 96 MG/DL (70-104); MAGNESIUM 1.8 MG/DL (1.5-2.4); PHOSPHORUS 2.4 MG/DL (2.3-4.5); POTASSIUM 3.3 MMOL/L (3.5-5.1); SODIUM 141 MMOL/L (135-145); TOTAL CARBON DIOXIDE 28.5 MMOL/L (24-32); VANCOMYCIN,RANDOM 15.8 UG/ML; eGFR 23 ML/MIN
--- NOTE | 2021-02-02 06:43 | NUR ---
Patient in room ORTHO 4023. I have received report from CHRISTOPHER PANIAGUA and had the opportunity to ask questions and assume patient care.
[2021-02-02] MEDS: K and/or MAG REPLACEMENT MC SCH ×3 (08:00→19:30)
[2021-02-02] MEDS: lactobacillus rhamnosus 10,000 MMU CELLS/CAPSULE PO SCH ×2 (09:07→19:33)
[2021-02-02] MEDS: diltiazem CD 180mg cap (once-daily) PO SCH (09:08)
[2021-02-02] MEDS: calcium carbonate 500mg chew tablet PO SCH ×3 (09:10→18:38)
[2021-02-02] MEDS: normal saline 1000ml 1,000 ML IV SCH ×2 (09:11→18:39)
[2021-02-02] MEDS ORDERED: iohexol 300 MG/1 ML 50ml polymer ONE (11:13)
[2021-02-02] MEDS ORDERED: LIDOcaine 1%/PF 5ML 10 MG/ML VIAL ONE (11:13)
[2021-02-02] MEDS ORDERED: midazolam 1 mg/ML 2ml injection ONE (11:13)
[2021-02-02] MEDS ORDERED: fentaNYL/PF 50MCG/1 ML 2ML syringe ONE (11:13)
[2021-02-02] MEDS: EPOETIN ALFA-EPBX 20,000 UNIT/ML 1 ML MDV SQ SCH (11:26)
--- NOTE | 2021-02-02 12:06 | NUR ---
F/u 02/02: Pt PO remains poor 0-25% avg regular diet not meeting needs. LBM 02/01 w/ diarrhea noted yesterday received PRN imodium at that time per EMR. Pt s/p R Nephrostomy tube -800ml output though DX bilateral hydronephrosis pending L Nephrostomy tube placement today per EMR. NPO since midnight 02/[address] d/w RN Jerardo shake not needed at this time as pt current skin intact outside bilateral tube sites; will send regular strawberry shakes as pt enjoyed recent admit and reports liking. Dietary notified. RD d/w RN regarding MVI supplementation and appetite stimulant if MD agreeable given pt reports no appetite both this and prior admits. Will continue to monitor for PO trends and additional protein/kcal needs this admit. Rec: 1. continue regular diet; encourage PO; honor food preferences 2. strawberry shakes TIDWM 3. appetite stimulant if MD agreeable; low baseline appetite 4. bowel care per rx 5. scaled wt this admit; subsequent weekly wts 6. Consider supplemental alternative nutrition IF pt PO remains poor given current severe malnutrition status, prolonged poor appetite, and nutrition repletion needs IF within plan of care Addendum: 02/02/21 at [address] Amended: Links added.
--- NOTE | 2021-02-02 12:38 | NUR ---
PAGER ID: [phone] MESSAGE: JO NETTLES [phone] RE: [id number] DAVE, Gil PATIENT BACK FROM LEFT UROSTOMY PLACEMENT AND WOULD LIKE PENA CATHETER REMOVED AND WOULD LIKE TO HAVE A DIET ORDERED. THANKS JO.
--- NOTE | 2021-02-02 14:46 | NUR ---
d/c bright cath per dr. lainez's orders
--- NOTE | 2021-02-02 16:49 | NUR ---
PAGER ID: [phone] MESSAGE: JO SURG [id number] RE: [id number] DAVE, Gil PATIENT HAS A POTASSIUM OF 3.3 AND THE PROTOCOL HAS FALLEN OFF, WOULD YOU LIKE ME TO ADD IT ON. THANKS JO.
--- NOTE | 2021-02-02 16:49 | NUR ---
PER DR. TOMLIN HE WILL REMOVE PATIENTS STENTS IN THE OUTPATIENT SETTING. HIS OFFICE IS TO CONTACT PATIENT AND SET UP TIME FOR STENT REMOVAL.
--- NOTE | 2021-02-02 18:10 | NUR ---
Assumed care from Jonny.
[2021-02-02] MEDS ORDERED: magnesium 2GM in 50ml NS 50 ML IV PRN (18:15)
[2021-02-02] MEDS ORDERED: potassium Cl 20 mEq SR tablet PO PRN ×2 (18:15)
[2021-02-02] MEDS ORDERED: potassium Cl 40MEQ/1/2NS 520ml 520 ML IV PRN (18:15)
[2021-02-02] MEDS ORDERED: magnesium 4gm in 100ml NS 100 ML IV PRN (18:15)
[2021-02-02] MEDS ORDERED: magnesium Cl slow-release 64mg tablet PO PRN (18:15)
--- NOTE | 2021-02-02 18:31 | NUR ---
Problems reprioritized. Patient report given, questions answered & plan of care reviewed with CHRISTOPHER PANIAGUA.
[2021-02-03] MEDS: CefTRIAXone 2gm/D5W 50ml BAG 50 ML IV SCH (00:07)
[2021-02-03] MEDS: normal saline 1000ml 1,000 ML IV SCH ×2 (04:00→08:19)
[2021-02-03 06:00] VITALS: BP 108/52
--- NOTE | 2021-02-03 06:00 | NUR ---
Report to Josselin PANIAGUA.
--- NOTE | 2021-02-03 06:02 | NUR ---
Patient in room ORTHO 4023. I have received report from CHRISTOPHER PANIAGUA and had the opportunity to ask questions and assume patient care.
[2021-02-03 06:27] LABS: BASOPHILS % (AUTO) 0.5 % (0-1); EOSINOPHILS # (AUTO) 0.2 X10'3 (0-0.9); EOSINOPHILS % (AUTO) 2.3 % (0-6); HEMATOCRIT 24.3 % (35.0-45.0); LYMPHOCYTES # (AUTO) 0.2 X10'3 (1.1-4.8); LYMPHOCYTES % (AUTO) 2.4 % (21-51); MEAN CORPUSCULAR HGB CONC 32.9 g/dL (33.0-36.5); MEAN CORPUSCULAR VOLUME 118.6 FL (78-98); MEAN PLATELET VOLUME 8.9 FL (7.4-10.4); MONOCYTES # (AUTO) 0.7 X10'3 (0-0.9); NEUTROPHILS # (AUTO) 6.3 X10'3 (1.8-7.7); NEUTROPHILS % (AUTO) 84.8 % (42-75); PLATELET COUNT 247 X10'3 (140-440); RED BLOOD COUNT 2.04 X10'6 (4.20-5.60); RED CELL DISTRIBUTION WIDTH 14.3 % (11.5-14.5); WHITE BLOOD COUNT 7.4 X10'3 (4.5-11.0)
[2021-02-03 07:03] LABS: ALBUMIN 1.7 G/DL (3.4-5.0); ANION GAP 5 (8-16); BLOOD UREA NITROGEN 25 MG/DL (7-18); BUN/CREATININE RATIO 15.4 (6.6-38.0); CALCIUM 6.4 MG/DL (8.5-10.1); CHLORIDE 107 MMOL/L (99-107); CREATININE 1.62 MG/DL (0.40-0.90); GLUCOSE 102 MG/DL (70-104); MAGNESIUM 1.6 MG/DL (1.5-2.4); PHOSPHORUS 2.7 MG/DL (2.3-4.5); POTASSIUM 3.9 MMOL/L (3.5-5.1); SODIUM 143 MMOL/L (135-145); TOTAL CARBON DIOXIDE 30.8 MMOL/L (24-32); eGFR 31 ML/MIN
[2021-02-03] MEDS: digoxin 125mcg (0.125mg) tablet PO SCH (07:45)
[2021-02-03] MEDS: diltiazem CD 180mg cap (once-daily) PO SCH (07:47)
[2021-02-03] MEDS: lactobacillus rhamnosus 10,000 MMU CELLS/CAPSULE PO SCH (07:47)
[2021-02-03] MEDS: K and/or MAG REPLACEMENT MC SCH ×2 (08:00)
[2021-02-03] MEDS: calcium carbonate 500mg chew tablet PO SCH ×2 (08:08→13:00)
[2021-02-03 10:00] VITALS: BP 112/58
[2021-02-03] MEDS ORDERED: DILT-36 PO ×2 (10:51)
--- NOTE | 2021-02-03 13:10 | NUR ---
Patient discharged [facility] in stable condition. belongings sent with patient. discharge education and follow up discussed. iv removed, tip intact, no complications. Pt discharged with family in private vehicle to home
== END 2021-02-03 13:10 | disposition home health service (06) | DRG 694 ==
LOC: ER 11:49 → ED HOLD 01-26 00:05 → ORTHO 4S 01-26 08:25
PROVIDERS: ADMIT Internal Medicine; ATTEND Family Medicine
PROC: 0T9330Z Drainage of Right Kidney Pelvis with Drainage Device, Percutaneous Approach (ICD-10-PCS; principal; 2021-01-28)
PROC: BT111ZZ Fluoroscopy of Right Kidney using Low Osmolar Contrast (ICD-10-PCS; 2021-01-28)
PROC: CT131ZZ Planar Nuclear Medicine Imaging of Kidneys, Ureters and Bladder using Technetium 99m (Tc-99m) (ICD-10-PCS; 2021-01-31)
PROC: 0T9430Z Drainage of Left Kidney Pelvis with Drainage Device, Percutaneous Approach (ICD-10-PCS; 2021-02-02)
PROC: BT121ZZ Fluoroscopy of Left Kidney using Low Osmolar Contrast (ICD-10-PCS; 2021-02-02)
DX: N13.30 Unspecified hydronephrosis (principal); C79.51 Secondary malignant neoplasm of bone; I48.20 Chronic atrial fibrillation, unspecified; E87.2 Acidosis; R64 Cachexia; Z68.1 Body mass index [BMI] 19.9 or less, adult; N17.9 Acute kidney failure, unspecified; N18.9 Chronic kidney disease, unspecified; C50.919 Malignant neoplasm of unspecified site of unspecified female breast; D63.8 Anemia in other chronic diseases classified elsewhere; E83.42 Hypomagnesemia; E87.6 Hypokalemia; R59.0 Localized enlarged lymph nodes; E83.51 Hypocalcemia; I12.9 Hypertensive chronic kidney disease with stage 1 through stage 4 chronic kidney disease, or unspecified chronic kidney disease; I25.10 Atherosclerotic heart disease of native coronary artery without angina pectoris; Z66 Do not resuscitate; Z85.3 Personal history of malignant neoplasm of breast; Z79.01 Long term (current) use of anticoagulants; Z88.2 Allergy status to sulfonamides; Z79.899 Other long term (current) drug therapy
CPT/HCPCS: 36415; 50432; 74176; 76937; 78452; 80048; 80053; 80202; 81001; 83605; 83735; 84100; 84132; 85008; 85025; 87040; 87070; 87075; 87077; 87081; 87088; 87102; 87186; 93005; 99152; 99153; 99285; A9500; C1729; C1769; G0378; J0696; J1940; J2250; J3010; J3370; J3475; J3480; J7030; Q4081; Q9967

== ENCOUNTER 2021-02-13 10:55 | Emergency (ER) | payer MEDICARE ==
[~2021-02-13] VITALS: Ht 167.6 cm; Wt 54.5 kg
[~2021-02-13 10:55] MED LIST changes: +DILT-36 PO; -DILT180C66 PO
[2021-02-13] MEDS: normal saline 1000ML IV soln IV ONE ×2 (11:15→12:10)
[2021-02-13] MEDS ORDERED: DOPamine 400mg/D5W 250ml 250 ML IV SCH (12:05)
[2021-02-13 12:19] LABS: BASOPHILS # (AUTO) 0.1 X10'3 (0-0.2); BASOPHILS % (AUTO) 0.4 % (0-1); EOSINOPHILS % (AUTO) 0 % (0-6); HEMATOCRIT 27.2 % (35.0-45.0); HEMOGLOBIN 8.6 g/dl (12.0-16.0); LYMPHOCYTES # (AUTO) 0.1 X10'3 (1.1-4.8); LYMPHOCYTES % (AUTO) 0.7 % (21-51); MEAN CORPUSCULAR HGB CONC 31.6 g/dL (33.0-36.5); MEAN CORPUSCULAR VOLUME 120.3 FL (78-98); MONOCYTES # (AUTO) 0.8 X10'3 (0-0.9); MONOCYTES % (AUTO) 4.2 % (2-12); NEUTROPHILS # (AUTO) 18.7 X10'3 (1.8-7.7); NEUTROPHILS % (AUTO) 94.7 % (42-75); PLATELET COUNT 208 X10'3 (140-440); RED BLOOD COUNT 2.26 X10'6 (4.20-5.60); RED CELL DISTRIBUTION WIDTH 14.6 % (11.5-14.5); WHITE BLOOD COUNT 19.7 X10'3 (4.5-11.0)
[2021-02-13 12:41] LABS: ALANINE AMINOTRANSFERASE 9 U/L (12-78); ALBUMIN 1.5 G/DL (3.4-5.0); ALBUMIN/GLOBULIN RATIO 0.6 (1.1-1.5); ALKALINE PHOSPHATASE 105 IU/L (46-116); ANION GAP 7 (8-16); ASPARTATE AMINO TRANSFERASE 25 U/L (10-37); BILIRUBIN,TOTAL 0.3 MG/DL (0.1-1.0); BLOOD UREA NITROGEN 50 MG/DL (7-18); BUN/CREATININE RATIO 19.5 (6.6-38.0); CALCIUM 6.7 MG/DL (8.5-10.1); CHLORIDE 103 MMOL/L (99-107); CREATININE 2.56 MG/DL (0.40-0.90); GLUCOSE 106 MG/DL (70-104); MAGNESIUM 1.5 MG/DL (1.5-2.4); POTASSIUM 4.4 MMOL/L (3.5-5.1); SODIUM 137 MMOL/L (135-145); TOTAL CARBON DIOXIDE 27.1 MMOL/L (24-32); TOTAL PROTEIN 4.2 G/DL (6.4-8.2); eGFR 18 ML/MIN
[2021-02-13 12:58] LABS: NUCLEATED RED BLOOD CELLS 1 /100WBC (0-0); PLATELET ESTIMATE NORMAL; TOTAL CELLS COUNTED 100
[2021-02-13 12:59] LABS: HYPOCHROMASIA 1+; POLYCHROMASIA 1+; TOXIC GRANULATION 1+
[2021-02-13 13:00] LABS: STOMATOCYTES 2+
[2021-02-13] MEDS ORDERED: CefTRIAXone 2gm/D5W 50ml BAG 50 ML IV ONE (13:50)
[2021-02-13] MEDS ORDERED: magnesium hydroxide 30ml (MOM) UD suspension PO PRN (14:30)
[2021-02-13] MEDS ORDERED: mag hydrox/Alum hydrox/simeth 30ml oral suspension PO PRN (14:30)
[2021-02-13] MEDS ORDERED: ondansetron/PF 4mg/2ml inj IV PRN (14:30)
[2021-02-13] MEDS ORDERED: morphine 2 MG/ML inj. syringe IV PRN ×2 (14:30)
[2021-02-13] MEDS ORDERED: acetaminophen 325mg tablet PO PRN (14:30)
[2021-02-13] MEDS ORDERED: HYDROcodone/acetaminophen 5mg/325mg tablet PO PRN (14:30)
[2021-02-13] MEDS ORDERED: vancomycin/NS 1 GM ADD-VANTAGE 250 ML IV PRN (14:30)
[2021-02-13] MEDS ORDERED: DILT-91 PO (14:53)
[2021-02-13] MEDS ORDERED: vancomycin/NS 1 GM ADD-VANTAGE 250 ML X 1 DOSE IV ONE (14:55)
[2021-02-13 15:06] LABS: TROPONIN I < 0.04 NG/ML (0.0-0.05)
[2021-02-13] MEDS: normal saline 1000ml 1,000 ML IV SCH (15:15)
[2021-02-13 16:46] LABS: UA COLLECTION TYPE OTHER
[2021-02-13 16:57] LABS: CLARITY,URINE CLOUDY (Clear); COLOR,URINE RED (Yellow); PH,URINE 6.5 (4.8-8.0); PROTEIN,URINE >=1000 mg/dl (Neg)
[2021-02-13 16:58] LABS: GLUCOSE, URINE NEGATIVE (Neg); KETONES,URINE TRACE mg/dl (Neg); LEUKOCYTE ESTERASE ,URINE MODERATE (Neg); NITRITES, URINE NEGATIVE (Neg); OCCULT BLOOD,URINE LARGE (Neg); UROBILINOGEN,URINE 0.2 E.U/dL (0.2-1.0)
[2021-02-13 17:02] LABS: CLARITY,URINE CLOUDY (Clear); COLOR,URINE YELLOW (Yellow); PROTEIN,URINE >=1000 mg/dl (Neg); UA COLLECTION TYPE OTHER
[2021-02-13 17:03] LABS: GLUCOSE, URINE NEGATIVE (Neg); KETONES,URINE NEGATIVE (Neg); LEUKOCYTE ESTERASE ,URINE MODERATE (Neg); NITRITES, URINE NEGATIVE (Neg); OCCULT BLOOD,URINE LARGE (Neg); UROBILINOGEN,URINE 0.2 E.U/dL (0.2-1.0)
[2021-02-13 17:16] LABS: BACTERIA,URINE 2+ /HPF (Neg); RBC,URINE TNTC /HPF (0-2); WBC,URINE TNTC /HPF (0-4); YEAST MANY /HPF (NEGATIVE)
[2021-02-13 17:17] LABS: SQUAMOUS EPITHELIAL CELL,UR NONE SEEN /LPF (FEW)
[2021-02-13 17:19] LABS: BACTERIA,URINE 2+ /HPF (Neg); RBC,URINE TNTC /HPF (0-2); SQUAMOUS EPITHELIAL CELL,UR NONE SEEN /LPF (FEW); WBC,URINE TNTC /HPF (0-4)
[2021-02-13] MEDS: docusate sod 100mg capsule PO SCH (20:00)
--- NOTE | 2021-02-13 20:10 | NUR ---
Pt blood pressure 87/39 With a MAP of 55. Per MD, dopamine increased by 3 mcg/kg/min. After titration blood pressure 103/64 with a MAP of 69.
[2021-02-14] MEDS: normal saline 1000ml 1,000 ML IV SCH (00:30)
--- NOTE | 2021-02-14 00:42 | NUR ---
Patient moved from bed to reclining chair in an effort to control back pain.
[2021-02-14] MEDS ORDERED: Melatonin 3mg tablet PO SCH (02:35)
[2021-02-14] MEDS ORDERED: morphine 2 MG/ML inj. syringe IV PRN (02:35)
[2021-02-14] MEDS ORDERED: VANCOMYCIN LEVEL IV SCH (03:00)
[2021-02-14] MEDS ORDERED: normal saline 1000ml 1,000 ML IVB ONE (04:25)
--- NOTE | 2021-02-14 04:27 | NUR ---
PT MOVED BACK TO A HOSITAL BED FROM THE RECLINER CHAIR. DAUGHTER AT BEDSIDE.
--- NOTE | 2021-02-14 04:29 | NUR ---
Patient appears more lethargic and is unable to communicate although she does try to follow commands. Pt appears to have right sided facial droop, right sided tongue deviation, and is listing to the right in the recliner. Pt appears to have equal hand accounts specialist strength. Patient assisted from chair to hospital bed and made comfortable. MD in to assess patient and gave verbal orders for ABG, 250 ML NS bolus, and to increase dopamine. Dopamine increased 2 mcg/kg/min. MD discussed code status with daughter at bedside.
[2021-02-14] MEDS ORDERED: normal saline 250ml IV soln 250 ML IV ONE (04:30)
--- NOTE | 2021-02-14 05:52 | NUR ---
Dr. Wright spoke with patient daughter about code status and end of life wishes. Daughter wished for both DNR and DNI status. Pt heart rate decreasing to mid 30's. Unable to obtain blood pressure with low HR. Blood pressure cuff removed for patient comfort.
--- NOTE | 2021-02-14 06:10 | NUR ---
Dr. Mccartney into see patient.
[2021-02-14 06:53] VITALS: BP 66/30
--- NOTE | 2021-02-14 07:15 | NUR ---
spoke to dr sullivan regarding pt dnr status and pt declining condition ,informed that pt is dnr and on dopamine drip pt bp 66/30 on discussed the dopamine drip rate with md and informed that daughter at bedside and pt daughter agrees to d/c the dopamine drip .as per dr sullivan d/c the dopamine drip .
--- NOTE | 2021-02-14 07:18 | NUR ---
d/joão staley while per pelayo was at bedside along with pt daughter.
--- NOTE | 2021-02-14 07:48 | NUR ---
hr 29,rr 11 ,not placed the bp cuff as pt daughter does not want this as it put pressure on pt arm.daughter at bedside holding pt hand.comfort cart outside the room.
[2021-02-14] MEDS: docusate sod 100mg capsule PO SCH (08:00)
--- NOTE | 2021-02-14 09:50 | NUR ---
pt hr 0 at [address] time notified dr green in ed for annoucing as per md also page the hospitalist for notes.
--- NOTE | 2021-02-14 09:51 | NUR ---
paged dr sullivan .waiting for call back.
--- NOTE | 2021-02-14 09:53 | NUR ---
patient daughter and daughter in law at bedside and stated that they had checked the pulse and has no pulse ,pt hr 0 ,rr0.informed that dr green will be with you guys shortly.
--- NOTE | 2021-02-14 09:55 | NUR ---
announced the time of at [address] .
--- NOTE | 2021-02-14 11:23 | NUR ---
called [facility] office at [phone] and spoke to amparo and as per her no need for keeping you guys can release the body and need not to report the to corner office as she does not meet the criteria.
--- NOTE | 2021-02-14 11:25 | NUR ---
spoke to [facility] at [phone] and reported the and as per mitch pt is not candidate for organ donor .refference id [id number].
--- NOTE | 2021-02-14 11:31 | NUR ---
notified deanne peñaloza [facility] regarding pt decesed condition and transportation to home as per family request given the phone no for daughter and notififed the time of .
== END 2021-02-14 11:45 ==
LOC: ER 10:55 → UNDOADMIN 14:35 → ED HOLD 14:35 → UNDODISIN 02-14 12:00
PROC: 02HV33Z Insertion of Infusion Device into Superior Vena Cava, Percutaneous Approach (ICD-10-PCS; principal; 2021-02-13)
PROC: B548ZZA Ultrasonography of Superior Vena Cava, Guidance (ICD-10-PCS; 2021-02-13)
DX: A41.9 Sepsis, unspecified organism (principal); E43 Unspecified severe protein-calorie malnutrition; J90 Pleural effusion, not elsewhere classified; J98.11 Atelectasis; N17.9 Acute kidney failure, unspecified; Z68.1 Body mass index [BMI] 19.9 or less, adult; C50.919 Malignant neoplasm of unspecified site of unspecified female breast; Z51.5 Encounter for palliative care; J44.9 Chronic obstructive pulmonary disease, unspecified; I12.9 Hypertensive chronic kidney disease with stage 1 through stage 4 chronic kidney disease, or unspecified chronic kidney disease; I95.9 Hypotension, unspecified; D53.9 Nutritional anemia, unspecified; I48.0 Paroxysmal atrial fibrillation; M41.9 Scoliosis, unspecified; N18.30 Chronic kidney disease, stage 3 unspecified; Z87.891 Personal history of nicotine dependence; Z88.2 Allergy status to sulfonamides; Z93.6 Other artificial openings of urinary tract status
CPT/HCPCS: 36415; 36556; 71045; 74176; 80053; 80162; 81001; 83605; 83735; 83880; 84100; 84145; 84484; 85007; 85025; 87040; 87088; 93005; 96361; 96365; 96366; 96367; 96375; 99291; J0696; J1265; J2270; J2405; J3370; J7030; G0378